=== PATIENT | male | born 1995 | race Caucasian/White ===

== ENCOUNTER 2016-09-13 19:44 | Inpatient (IN) | payer MEDICAID ==
[~2016-09-13] VITALS: Ht 185.4 cm; Wt 80.3 kg
[~2016-09-13 19:44] MED LIST: CITA20TA9 PO; RISP1 PO
[2016-09-14] MEDS ORDERED: INFLUENZA VIRUS VACCINE QVS 2016-17 (3YR+)/PF 60 MCG/0.5 ML SYRINGE IM ONE (01:00)
[2016-09-14] MEDS ORDERED: PNEUMOCOCCAL VACCINE POLYVALENT 0.5 ML VIAL [PPSV23] IM ONE (01:00)
[2016-09-14 01:12] VITALS: BP 114/59
[2016-09-14] MEDS: LORazepam 2 MG TABLET PO PRN ×2 (01:36→09:26)
[2016-09-14] MEDS: ZOLPIDEM TARTRATE 10 MG TABLET PO PRN (01:36)
[2016-09-14 08:24] VITALS: BP 106/45
[2016-09-14] MEDS ORDERED: RisperiDONE 1 MG TABLET PO SCH (09:00)
[2016-09-14] MEDS ORDERED: CITALOPRAM HYDROBROMIDE 20 MG TABLET PO SCH (09:00)
[2016-09-14] MEDS: OLANZapine 5 MG RAPDIS TABLET PO PRN (09:21)
[2016-09-14] MEDS ORDERED: ACETAMINOPHEN 325 MG TABLET PO PRN (09:45)
[2016-09-14] MEDS ORDERED: MAG HYDROX/AL HYDROX/SIMETH ES 30 ML SUSPENSION UDCUP PO PRN (09:45)
[2016-09-14] MEDS ORDERED: HydrOXYzine PAMOATE 50 MG CAPSULE PO PRN (09:45)
[2016-09-14] MEDS ORDERED: LOPERAMIDE HCL 2 MG CAPSULE PO PRN (09:45)
[2016-09-14] MEDS ORDERED: MAGNESIUM HYDROXIDE SUSPENSION 30 ML UDCUP PO PRN (09:45)
[2016-09-14] MEDS ORDERED: PROMETHAZINE HCL 25 MG TABLET PO PRN (09:45)
[2016-09-14] MEDS ORDERED: TUBERCULIN, PURIFIED PROTEIN DERIVATIVE 5 TU/0.1 ML SYG ID ONE (09:45)
[2016-09-14] MEDS ORDERED: GuaiFENesin/D-METHORPHAN [SUGAR-FREE] 200-20MG/10 ML SYRUP UDCUP PO PRN (09:45)
[2016-09-14 16:02] VITALS: BP 119/68
[2016-09-14] MEDS: THIAMINE HCL 100 MG TABLET PO SCH (16:30)
[2016-09-14] MEDS ORDERED: OLANZapine 5 MG RAPDIS TABLET PO SCH (21:00)
[2016-09-15 02:10] VITALS: BP 108/76
[2016-09-15 08:11] VITALS: BP 105/55
[2016-09-15 08:32] LABS: BASOPHILS % (AUTO) 0.5 % (0.0-2.0); EOSINOPHILS % (AUTO) 2.9 % (1.0-6.0); HEMATOCRIT 45.7 % (41-53); HEMOGLOBIN 14.7 g/dL (13.5-17.5); LYMPHOCYTES # (AUTO) 3.7 K/uL (1.0-4.8); LYMPHOCYTES % (AUTO) 41.6 % (22.0-44.0); MEAN CORPUSCULAR HEMOGLOBIN 29.1 pg (26.0-34.0); MEAN CORPUSCULAR HGB CONC 32.2 G/dL (31.0-37.0); MEAN CORPUSCULAR VOLUME 90 fL (80-100); MONOCYTES # (AUTO) 0.5 K/uL (0.1-1.0); MONOCYTES % (AUTO) 5.8 % (2.0-9.0); NEUTROPHILS # (AUTO) 4.3 K/uL (1.8-7.7); NEUTROPHILS % (AUTO) 49.2 % (40.0-70.0); PLATELET COUNT (AUTO) 231 K/uL (150-450); RED BLOOD CELL COUNT(AUTO) 5.07 MIL/uL (4.50-5.90); WHITE BLOOD COUNT (AUTO) 8.8 K/uL (4.5-11.0)
[2016-09-15 09:16] LABS: HEMOGLOBIN A1C 5.5 % (4.5-6.2)
[2016-09-15 09:30] LABS: ALANINE AMINOTRANSFERASE 21 U/L (12-78); ALBUMIN 3.5 g/dL (3.4-5.0); ANION GAP 10 mmol/L (8-16); ASPARTATE AMINOTRANSFERASE 16 U/L (15-37); BILIRUBIN,TOTAL 0.4 mg/dL (0.1-1.0); CALCIUM, TOTAL 8.6 mg/dL (8.8-10.5); CARBON DIOXIDE 28 mmol/L (22-29); CHLORIDE 107 mmol/L (98-107); CHOL/HDL RATIO 2.6 (4.2-7.3); CREATININE 0.83 mg/dL (0.60-1.30); GLOMERULAR FILTR. RATE CALC > 60 mL/min (>60); POTASSIUM 4.1 mmol/L (3.5-5.1); SODIUM SERUM 145 mmol/L (136-145); THYROID STIMULATING HORMONE 0.13 uIU/mL (0.36-3.74); TOTAL PROTEIN, SERUM 6.3 g/dL (6.4-8.2); UREA NITROGEN, BLOOD 14 mg/dL (7-18)
[2016-09-15] MEDS: THIAMINE HCL 100 MG TABLET PO SCH ×2 (09:41→17:25)
[2016-09-15] MEDS: MULTIVITAMINS WITH MINERALS, THERAPEUTIC TABLET PO SCH (09:41)
[2016-09-15] MEDS: FLUoxetine HCL 20 MG CAPSULE PO SCH (09:41)
[2016-09-15] MEDS: FOLIC ACID 1 MG TABLET PO SCH (09:41)
[2016-09-15 16:00] VITALS: BP 118/67
[2016-09-15] MEDS: LORazepam 2 MG TABLET PO PRN (17:25)
[2016-09-15] MEDS ORDERED: OLANZapine 10 MG RAPDIS TABLET PO SCH (21:00)
[2016-09-16 00:23] VITALS: BP 127/80
[2016-09-16 08:43] VITALS: BP 105/65
[2016-09-16] MEDS: THIAMINE HCL 100 MG TABLET PO SCH ×2 (09:00→17:18)
[2016-09-16] MEDS: MULTIVITAMINS WITH MINERALS, THERAPEUTIC TABLET PO SCH (09:17)
[2016-09-16] MEDS: OLANZapine 5 MG RAPDIS TABLET PO PRN (09:17)
[2016-09-16] MEDS: FOLIC ACID 1 MG TABLET PO SCH (09:17)
[2016-09-16] MEDS: FLUoxetine HCL 20 MG CAPSULE PO SCH (09:17)
[2016-09-16] MEDS: NALTREXONE HCL 50 MG TABLET PO SCH (09:17)
[2016-09-16] MEDS: LORazepam 2 MG TABLET PO PRN (09:17)
[2016-09-16] MEDS ORDERED: FLUO-191 PO (15:53)
[2016-09-16] MEDS ORDERED: NALT50 PO (15:53)
[2016-09-16] MEDS ORDERED: OLAN10TA22 PO (15:53)
[2016-09-16 16:00] VITALS: BP 110/68
[2016-09-16] MEDS: ZOLPIDEM TARTRATE 10 MG TABLET PO PRN (20:38)
[2016-09-16] MEDS ORDERED: OLANZapine 10 MG RAPDIS TABLET PO SCH (21:00)
[2016-09-17 08:41] VITALS: BP 111/68
[2016-09-17] MEDS: MULTIVITAMINS WITH MINERALS, THERAPEUTIC TABLET PO SCH (09:24)
[2016-09-17] MEDS: FOLIC ACID 1 MG TABLET PO SCH (09:24)
[2016-09-17] MEDS: FLUoxetine HCL 20 MG CAPSULE PO SCH (09:24)
[2016-09-17] MEDS: NALTREXONE HCL 50 MG TABLET PO SCH (09:24)
[2016-09-17] MEDS: THIAMINE HCL 100 MG TABLET PO SCH (09:24)
[2016-09-17] MEDS ORDERED: OLANZapine 10 MG RAPDIS TABLET PO SCH (21:00)
== END 2016-09-17 15:17 | disposition home or self-care (01) | DRG 751 ==
LOC: B3A 09-14 00:24
PROVIDERS: ADMIT Psychiatry & Neurology Psychiatry; ATTEND Psychiatry & Neurology Psychiatry
DX: F32.3 Major depressive disorder, single episode, severe with psychotic features (principal); E58 Dietary calcium deficiency; F10.20 Alcohol dependence, uncomplicated; F17.210 Nicotine dependence, cigarettes, uncomplicated; G47.00 Insomnia, unspecified; F19.10 Other psychoactive substance abuse, uncomplicated; J45.909 Unspecified asthma, uncomplicated; Z79.899 Other long term (current) drug therapy; Z91.19 Patient's noncompliance with other medical treatment and regimen; Z71.41 Alcohol abuse counseling and surveillance of alcoholic; Z71.6 Tobacco abuse counseling; Z59.0 Homelessness; Z65.3 Problems related to other legal circumstances; Z28.21 Immunization not carried out because of patient refusal
CPT/HCPCS: 83036; 84439; 84443; 90471